=== PATIENT | male | born 1995 | race Caucasian/White ===

== ENCOUNTER 2021-03-15 03:16 | Emergency (ER) | payer SELFPAY ==
[~2021-03-15] VITALS: Ht 177.8 cm; Wt 99.8 kg
--- NOTE | 2021-03-15 03:16 | NUR ---
Dr. Arellano examining patient.
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
--- NOTE | 2021-03-15 03:16 | NUR ---
PT BIB [facility], PREBOOK. TAKEN TO CHAIR
[2021-03-15] MEDS ORDERED: LIDOCAINE/EPI 1% 1:100000 20 ML VIAL INJ ONE (03:20)
[2021-03-15 03:23] VITALS: BP 151/99
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
[2021-03-15] MEDS ORDERED: BACITRACIN OINT 500 UNITS/GM PKT TP ONE ×2 (03:46→03:50)
--- NOTE | 2021-03-15 03:50 | NUR ---
MEDICALLY CLEARED, IN CUSTODY OF [facility] #[id number]
[2021-03-15 03:55] VITALS: BP 151/99
== END 2021-03-15 03:50 ==
LOC: MED 03:16
DX: S01.111A Laceration without foreign body of right eyelid and periocular area, initial encounter (principal); S01.21XA Laceration without foreign body of nose, initial encounter; Z02.89 Encounter for other administrative examinations; V43.92XA Unspecified car occupant injured in collision with other type car in traffic accident, initial encounter; Y93.89 Activity, other specified; Y92.89 Other specified places as the place of occurrence of the external cause; Y99.8 Other external cause status
CPT/HCPCS: 12013; 99283; J2001